=== PATIENT | male | born 1990 | race Asian ===

== ENCOUNTER 2023-01-09 20:47 | Emergency (ER) | payer SELFPAY ==
[~2023-01-09] VITALS: Ht 172.7 cm; Wt 72.7 kg
[2023-01-09 21:36] LABS: BASO % 0.4 % (0.0-1.0); EOS % 0.1 % (0.0-3.0); HEMATOCRIT 44.1 % (42.0-52.0); HEMOGLOBIN 15.4 g/dl (13.5-17.5); LYMPH # 3.2 10^3/uL (1.5-5.0); MEAN CORPUSCULAR HEMOGLOBIN 33.7 pg (27.0-33.0); MEAN CORPUSCULAR HGB CONC 34.9 g/dl (32.0-36.5); MEAN CORPUSCULAR VOLUME 96.5 fl (80.0-96.0); MONO # 0.4 10^3/uL (0.0-0.8); MONO % 5.6 % (2.0-8.0); NEUTROPHILS # 3.1 10^3/uL (1.5-8.5); NEUTROPHILS % 46.8 % (36.0-66.0); PLATELET COUNT, AUTOMATED 207 10^3/uL (150-450); RED BLOOD COUNT 4.57 10^6/uL (4.30-6.10); WHITE BLOOD COUNT 6.7 10^3/uL (4.0-10.0)
[2023-01-09 21:49] LABS: LIPASE 36 U/L (12-53)
[2023-01-09 21:50] LABS: CK-MB VALUE MASS < 1.0 NG/ML (<3.6)
[2023-01-09 21:51] LABS: ALBUMIN 4.1 G/DL (3.2-5.2); ALKALINE PHOSPHATASE 107 U/L (46-116); ALT/SGPT 87 U/L (7.0-40); AST/SGOT 68 U/L (<34); BILIRUBIN,DIRECT 0.3 MG/DL (<0.4); BLOOD UREA NITROGEN 8 MG/DL (9-23); CALCIUM LEVEL 8.4 MG/DL (8.5-10.1); CARBON DIOXIDE LEVEL 21 MMOL/L (20-31); CHLORIDE LEVEL 105 MMOL/L (98-107); CREATININE FOR GFR 0.78 MG/DL (0.70-1.30); GLOMERULAR FILTRATION RATE > 60.0 (>60); GLUCOSE, FASTING 100 MG/DL (60-100); POTASSIUM SERUM 3.7 MMOL/L (3.5-5.1); SODIUM LEVEL 141 MMOL/L (136-145); TOTAL PROTEIN 7.1 G/DL (5.7-8.2)
[2023-01-09 21:55] LABS: CPK CREATINE PHOSPHOKINASE 171 U/L (46-171); MB/CK RELATIVE INDEX 0.58 (< OR =4)
[2023-01-09] MEDS ORDERED: SUCRALFATE SUSP 1GM/10ML UD PO ONE (22:20)
[2023-01-09] MEDS ORDERED: MAALOX 30 ML SUSP *UDC PO ONE (22:20)
[2023-01-09] MEDS ORDERED: NS 1,000 ML IV ONE (22:20)
[2023-01-09] MEDS ORDERED: PANTOPRAZOLE 40MG VIAL IV ONE (22:20)
[2023-01-09 23:05] LABS: CK-MB VALUE MASS < 1.0 NG/ML (<3.6)
[2023-01-09 23:08] LABS: CPK CREATINE PHOSPHOKINASE 164 U/L (46-171)
[2023-01-09] MEDS ORDERED: OXAZEPAM 15MG CAP PO ONE (23:35)
[2023-01-09] MEDS ORDERED: OXAZ30CA2 PO (23:47)
[2023-01-10] VITALS: BP 146/95
[2023-01-10 00:02] VITALS: TEMP 98.3; O2SAT 98
== END 2023-01-10 00:02 | disposition home or self-care (01) ==
LOC: EDBD 20:47 → M ED 20:47
DX: K29.20 Alcoholic gastritis without bleeding (principal); F10.130 Alcohol abuse with withdrawal, uncomplicated; F17.220 Nicotine dependence, chewing tobacco, uncomplicated; F17.290 Nicotine dependence, other tobacco product, uncomplicated
CPT/HCPCS: 71045; 80048; 80076; 82077; 82550; 82553; 83690; 84484; 85025; 93005; 93041; 94760; 96361; 96374; 99285; C9113

== ENCOUNTER 2023-02-19 22:18 | Inpatient (IN) | payer SELFPAY ==
[~2023-02-19] VITALS: Ht 170.2 cm; Wt 68.9 kg
[~2023-02-19 22:18] MED LIST: OXAZ30CA2 PO
[2023-02-19] MEDS ORDERED: MULTIVITAMIN -ADULT INJECTION 10 ML, THIAMINE INJection 100 MG, FOLIC ACID 1 MG in NS 1... IV ONE (22:35)
[2023-02-19 22:59] LABS: BASO # 0.1 10^3/uL (0.0-0.2); BASO % 0.9 % (0.0-1.0); EOS # 0.1 10^3/uL (0.0-0.5); HEMATOCRIT 40.6 % (42.0-52.0); HEMOGLOBIN 14.3 g/dl (13.5-17.5); LYMPH % 35.8 % (24.0-44.0); MEAN CORPUSCULAR HEMOGLOBIN 35.1 pg (27.0-33.0); MEAN CORPUSCULAR HGB CONC 35.2 g/dl (32.0-36.5); MEAN CORPUSCULAR VOLUME 99.8 fl (80.0-96.0); MONO # 0.5 10^3/uL (0.0-0.8); MONO % 8.1 % (2.0-8.0); NEUTROPHILS % 53.2 % (36.0-66.0); PLATELET COUNT, AUTOMATED 259 10^3/uL (150-450); RED BLOOD COUNT 4.07 10^6/uL (4.30-6.10); WHITE BLOOD COUNT 5.6 10^3/uL (4.0-10.0)
[2023-02-19 23:12] LABS: INR 1.09; PROTHROMBIN TIME 13.8 SECONDS (12.5-14.5)
[2023-02-19 23:13] LABS: PARTIAL THROMBOPLASTIN TIME 28.1 SECONDS (24.8-34.2)
[2023-02-19 23:43] LABS: CK-MB VALUE MASS < 1.0 NG/ML (<3.6)
[2023-02-19 23:44] LABS: LIPASE 32 U/L (12-53)
[2023-02-19 23:46] LABS: ALBUMIN 3.2 G/DL (3.2-5.2); ALKALINE PHOSPHATASE 152 U/L (46-116); ALT/SGPT 234 U/L (7.0-40); AST/SGOT 311 U/L (<34); BILIRUBIN,TOTAL 1.5 MG/DL (0.3-1.2); BLOOD UREA NITROGEN 14 MG/DL (9-23); CALCIUM LEVEL 7.6 MG/DL (8.5-10.1); CARBON DIOXIDE LEVEL 25 MMOL/L (20-31); CHLORIDE LEVEL 103 MMOL/L (98-107); CREATININE FOR GFR 0.76 MG/DL (0.70-1.30); GLOMERULAR FILTRATION RATE > 60.0 (>60); GLUCOSE, FASTING 121 MG/DL (60-100); POTASSIUM SERUM 3.6 MMOL/L (3.5-5.1); SODIUM LEVEL 139 MMOL/L (136-145); TOTAL PROTEIN 5.8 G/DL (5.7-8.2)
[2023-02-19 23:48] LABS: FREE T4 1.28 NG/DL (0.89-1.76); THYROID STIMULATING HORMONE 0.922 uIU/ML (0.55-4.78)
[2023-02-19 23:54] LABS: CPK CREATINE PHOSPHOKINASE 66 U/L (46-171); MB/CK RELATIVE INDEX 1.51 (< OR =4)
[2023-02-20] VITALS (9 sets, daily range): BP systolic 118–135; BP diastolic 79–96; TEMP 97–99.7; O2SAT 98–100
[2023-02-20] MEDS ORDERED: OXAZEPAM 15MG CAP PO ONE (00:05)
[2023-02-20] MEDS ORDERED: HOME MED LIST COMPLETE! XX SCH (00:30)
[2023-02-20] MEDS ORDERED: ACETAMINOPHEN TAB 650MG DOSE (2X325MG) PO PRN (00:40)
[2023-02-20] MEDS: LR 1,000 ML IV SCH ×3 (00:40→14:16)
[2023-02-20] MEDS ORDERED: ONDANSETRON 4MG 2ML VIAL IV PRN (00:40)
[2023-02-20 01:01] LABS: RSV AMPLIFICATION NEGATIVE (NEGATIVE)
[2023-02-20] MEDS: LORazepam 2 MG TAB PO PRN ×3 (03:02→21:49)
[2023-02-20 07:22] LABS: HEMATOCRIT 41.7 % (42.0-52.0); HEMOGLOBIN 14.6 g/dl (13.5-17.5); MEAN CORPUSCULAR HEMOGLOBIN 35.4 pg (27.0-33.0); PLATELET COUNT, AUTOMATED 253 10^3/uL (150-450); RED BLOOD COUNT 4.13 10^6/uL (4.30-6.10); WHITE BLOOD COUNT 6.8 10^3/uL (4.0-10.0)
[2023-02-20 07:46] LABS: ALBUMIN 3.2 G/DL (3.2-5.2); ALKALINE PHOSPHATASE 156 U/L (46-116); ALT/SGPT 231 U/L (7.0-40); AST/SGOT 308 U/L (<34); BILIRUBIN,TOTAL 1.7 MG/DL (0.3-1.2); BLOOD UREA NITROGEN 13 MG/DL (9-23); CALCIUM LEVEL 7.9 MG/DL (8.5-10.1); CARBON DIOXIDE LEVEL 25 MMOL/L (20-31); CHLORIDE LEVEL 103 MMOL/L (98-107); CREATININE FOR GFR 0.71 MG/DL (0.70-1.30); GLOMERULAR FILTRATION RATE > 60.0 (>60); GLUCOSE, FASTING 84 MG/DL (60-100); MAGNESIUM LEVEL 1.7 MG/DL (1.8-2.4); POTASSIUM SERUM 3.9 MMOL/L (3.5-5.1); SODIUM LEVEL 139 MMOL/L (136-145); TOTAL PROTEIN 5.8 G/DL (5.7-8.2)
[2023-02-20] MEDS: ACAMPROSATE CALCIUM 333MG TABLET (CAMPRAL) PO SCH ×3 (09:00→20:44)
[2023-02-20] MEDS: MULTIVITAMINS/MINERALS THERAP 1 TAB PO SCH (09:00)
[2023-02-20 09:01] LABS: HEPATITIS B CORE ANTIBODY IGM NEGATIVE (NEGATIVE); HEPATITIS C VIRUS ABY INDEX 0.04 INDEX (<0.8)
[2023-02-20] MEDS: THIAMINE 100 MG TAB PO SCH ×2 (09:01→20:43)
[2023-02-20] MEDS: FOLIC ACID 1MG TAB PO SCH (09:01)
[2023-02-20] MEDS: GABAPENTIN 300 MG CAP PO SCH ×3 (09:01→20:43)
[2023-02-20] MEDS: OXAZEPAM 15MG CAP PO SCH ×3 (09:03→23:03)
[2023-02-20] MEDS: MAG SULF 1GM/100ML (MAG RUN) 1 GM in IV 1 EA IV SCH ×2 (09:03→10:34)
[2023-02-20 10:36] LABS: IRON (FE) 191 UG/DL (65-175); PERCENT SATURATION 84.5 % (19.7-50.0); TOTAL IRON BINDING CAPACITY 226 UG/DL (250-425)
[2023-02-20 10:39] LABS: VITAMIN B12 LEVEL 1271 PG/ML (211-911)
[2023-02-20 10:56] LABS: FERRITIN 3024.3 NG/ML (10.5-307.3); FOLATE > 24.00 NG/ML (>5.4)
[2023-02-20 11:09] LABS: INR 1.07; PROTHROMBIN TIME 13.6 SECONDS (12.5-14.5)
[2023-02-20] MEDS ORDERED: RIVAROXABAN 10MG TAB (XARELTO) PO SCH (18:00)
[2023-02-20] MEDS: CALCIUM CARBONATE 500 MG CHEW U/D PO PRN ×2 (18:58→23:03)
[2023-02-20] MEDS ORDERED: NS 1,000 ML IV ONE (20:55)
[2023-02-21] VITALS: BP 158/110; TEMP 98.3; O2SAT 99
[2023-02-21] MEDS: LORazepam 2 MG TAB PO PRN (02:10)
[2023-02-21 03:53] VITALS: BP 146/102; TEMP 97.6; O2SAT 97
[2023-02-21 06:17] LABS: HEMOGLOBIN 13.8 g/dl (13.5-17.5); MEAN CORPUSCULAR HEMOGLOBIN 34.8 pg (27.0-33.0); MEAN CORPUSCULAR HGB CONC 34.5 g/dl (32.0-36.5); MEAN CORPUSCULAR VOLUME 100.8 fl (80.0-96.0); PLATELET COUNT, AUTOMATED 175 10^3/uL (150-450); RED BLOOD COUNT 3.97 10^6/uL (4.30-6.10); WHITE BLOOD COUNT 6.6 10^3/uL (4.0-10.0)
[2023-02-21 06:44] LABS: ALBUMIN 2.9 G/DL (3.2-5.2); ALKALINE PHOSPHATASE 159 U/L (46-116); ALT/SGPT 202 U/L (7.0-40); AST/SGOT 280 U/L (<34); BILIRUBIN,TOTAL 1.9 MG/DL (0.3-1.2); BLOOD UREA NITROGEN 6 MG/DL (9-23); CALCIUM LEVEL 8.4 MG/DL (8.5-10.1); CARBON DIOXIDE LEVEL 28 MMOL/L (20-31); CHLORIDE LEVEL 105 MMOL/L (98-107); CREATININE FOR GFR 0.81 MG/DL (0.70-1.30); GLOMERULAR FILTRATION RATE > 60.0 (>60); GLUCOSE, FASTING 95 MG/DL (60-100); POTASSIUM SERUM 3.6 MMOL/L (3.5-5.1); SODIUM LEVEL 142 MMOL/L (136-145); TOTAL PROTEIN 5.6 G/DL (5.7-8.2)
[2023-02-21] MEDS: OXAZEPAM 15MG CAP PO SCH (09:10)
[2023-02-21] MEDS: ACAMPROSATE CALCIUM 333MG TABLET (CAMPRAL) PO SCH (09:10)
[2023-02-21] MEDS: GABAPENTIN 300 MG CAP PO SCH (09:10)
[2023-02-21] MEDS: FOLIC ACID 1MG TAB PO SCH (09:10)
[2023-02-21] MEDS: MULTIVITAMINS/MINERALS THERAP 1 TAB PO SCH (09:11)
[2023-02-21] MEDS: THIAMINE 100 MG TAB PO SCH (09:11)
[2023-02-21] MEDS ORDERED: OXAZ15CA4 PO (09:43)
[2023-02-21] MEDS ORDERED: ESSETAB4 PO (09:43)
[2023-02-21] MEDS ORDERED: THIA100TA PO (09:43)
[2023-02-21] MEDS ORDERED: GABA-282 PO (09:43)
[2023-02-21] MEDS ORDERED: ACAM0.05 PO (09:43)
[2023-02-23] MEDS ORDERED: GABAPENTIN 300 MG CAP PO SCH (09:00)
== END 2023-02-21 12:04 | disposition home or self-care (01) | DRG 280 ==
LOC: EDBD 22:18 → M ED 22:18 → M ED INP 02-20 00:40 → M PCU 02-20 02:02
PROVIDERS: ADMIT Internal Medicine; ATTEND Internal Medicine
DX: K70.10 Alcoholic hepatitis without ascites (principal); F10.139 Alcohol abuse with withdrawal, unspecified; F17.200 Nicotine dependence, unspecified, uncomplicated; R74.01 Elevation of levels of liver transaminase levels; R55 Syncope and collapse; Z90.49 Acquired absence of other specified parts of digestive tract; Z20.822 Contact with and (suspected) exposure to COVID-19; R79.89 Other specified abnormal findings of blood chemistry; E86.0 Dehydration; R94.5 Abnormal results of liver function studies